=== PATIENT | male | born 2000 | race African-American/Black ===

== ENCOUNTER 2022-04-05 16:17 | Emergency (ER) | payer OTHER, SELFPAY | END 2022-04-05 20:45 | disposition left against medical advice (07) | LOC: CSHERS 16:17 | DX: Z53.21 Procedure and treatment not carried out due to patient leaving prior to being seen by health care provider (principal) ==

== ENCOUNTER 2024-04-23 11:15 | Emergency (ER) | payer SELFPAY | END 2024-04-23 12:21 | disposition home or self-care (01) | LOC: CSHERS 11:15 | DX: K64.4 Residual hemorrhoidal skin tags (principal); I10 Essential (primary) hypertension; F17.210 Nicotine dependence, cigarettes, uncomplicated | CPT/HCPCS: 99283 ==